=== PATIENT | male | born 1975 | race Caucasian/White ===

== ENCOUNTER 2019-12-24 09:19 | Observation (INO) | payer OTHER, SELFPAY ==
[2019-12-24] VITALS (9 sets, daily range): BP systolic 110–151; BP diastolic 76–110; PULSE 75–105; RESP 16–20; TEMP 36.2–36.8; O2SAT 96–98; BMI 25.9
--- NOTE | ~2019-12-24 | XR_ITS ---
XR chest 2V DATE: 12/24/2019 09:52 INDICATION: Chest pain. Hypertension. TECHNIQUE: PA and lateral views COMPARISON: 06/13/2019 2 view chest FINDINGS: Normal heart size. No hilar or mediastinal enlargement. No pulmonary infiltrate or consolid ation, pleural effusion or pulmonary vascular congestion or pneumothorax. IMPRESSION: Negative Reviewed, dictated and finalized at location B. OMER ACCOUNT TECHNICIAN IMPRESSION: Negative
--- NOTE | 2019-12-24 09:26 | ED.CHESTPAIN ---
HPI - Chest Pain General Chief Complaint: Chest Pain Stated Complaint: Chest Pain Time Seen by Provider: 12/24/19 09:21 Source: patient and RN notes reviewed Mode of arrival: ambulatory Limitations: no limitations History of Present Illness HPI narrative: Pt is a 44 y/o male who presents to the ED with c/o diffuse chest pain which began at 1500 yesterday. He states the pain feels like a tightness or squeezing sensation. Pt states he has been struggling with hypertension and tachycardia for the past 3 months. He reports his PCP, Dr. Garcia, has tried to change his medications for the past 3 months, but his symptoms have not been alleviated. Pt reports his blood pressure was in the 160's/120's in November 2019 when he went to visit Dr. Garcia at his last appointment. He reports he has been experiencing chest pain intermittently for the past 3 months. Pt reports he called his PCP, Dr. Garcia, yesterday who prompted him to come to the ED to be evaluated. He denies taking anything for the pain. He also denies any modifying factors. He reports SOB along with the chest pain, but denies diaphoresis, nausea, or vomiting. Pt reports he has a stress test scheduled for 0800 tomorrow morning at [facility]. Pt denies seeing a substation technician until tomorrow. MD complaint: chest pain Pertinent past history: other (hypertension) Onset (ago): day(s) (1500 yesterday) Timing of current episode: episodic Prior episodes: Yes Onset: during rest Pain location: other (diffuse) Pain radiation: none Quality: tightness and other (squeezing sensation) Relieving factors: nothing (medication change has not helped) Exacerbating factors: nothing Associated symptoms: other (SOB) Related Data Home Medications Medication Instructions Recorded Confirmed Aspirin Low Dose 12/24/19 Allergies Allergy/AdvReac Type Severity Reaction Status Date / Time No Known Drug Allergies Allergy Unknown Unknown Verified 12/05/19 10:07 Honey Bee Allergy Severe Anaphylactic Uncoded 12/05/19 10:07 Shock Review of Systems Review of Systems: All systems reviewed & are unremarkable except as noted in HPI and below Cardiovascular: Cardiovascular: Reports chest pain and Denies diaphoresis Respiratory: Respiratory: Reports dyspnea Gastrointestinal: Gastrointestinal: Denies nausea and Denies vomiting [facility] Social History Social History (Updated 12/24/19 @ 10:20 by Jami A. Avladez) Smoking status: Current every day smoker Tobacco type: e-cigarettes Second hand tobacco smoke exposure: Yes Smoking end date: 07/25/19 Alcohol intake: current Substance use: never Substance use type: does not use Gender identity (if verbalized by the patient): Male Spiritual care concerns: No Agree to blood products: No Comments PCP: Dr. Garcia Exam Const: General: cooperative, no acute distress and alert Nutritional Appearance: well nourished Orientation/consciousness: patient oriented x3 Limitations: no limitations HENMT: Mouth: Yes lip normal and Yes moist mucous membranes Resp: Effort & Inspection: normal respiratory effort Auscultation: clear to auscultation bilaterally Cardio: Rate: tachycardic Rhythm: regular rhythm GI: GI Palp: Yes Soft to palpation and No Tenderness to palpation present (GI) Auscultation: normal bowel sounds Skin: General skin exam: normal color Neuro: General: patient oriented x3 Cognition (Neuro): normal cognition Speech: normal speech Extrem: General: normal to inspection, full ROM and no clubbing, cyanosis or edema Psych: Mental Status: mental status grossly normal Affect: normal affect Attitude: cooperative Course Course Emergency Course: On reevaluation, patient chest pain-free after nitroglycerin. Patient states he has been continuing to have intermittent chest pain in the emergency department. Nitroglycerin paste ordered. Case discussed with primary care physician and plan will be observation in the hospital for serial t
--- NOTE | 2019-12-24 09:33 | ECG_ITS ---
Measurements Intervals [place] Rate: 102 P: 53 IN: 148 QRS: 29 QRSD: 94 T: -19 QT: 302 QTc: 394 Interpretive Statements SINUS TACHYCARDIA POSSIBLE LEFT ATRIAL ENLARGEMENT ST-T WAVE ABNORMALITY IN INF/LAT LEADS- CONSIDER ISCHEMIA ABNORMAL ECG Electronically Signed On 12-24-2019 15:35:06 WOODWORK TEACHER by Javier Abarca D.O.
[2019-12-24] MEDS: ASPIRIN 81 MG CHEWABLE TABLET 324 MG PO (09:39)
[2019-12-24 09:46] LABS: Basophils Absolute Auto 0.1 K/mm3 (0.0-0.1); Basophils Percent Auto 0.7 % (0.2-1.2); Eosinophils Absolute Auto 0.4 K/mm3 (0-0.3); Eosinophils Percent Auto 3.9 % (0-4.4); Hematocrit 45.3 % (42.0-52.0); Hemoglobin 15.2 g/dL (14.0-18.0); Immature Granulocyte Absolute 0.02 K/mm3 (0.00-0.031); Immature Granulocyte Percent A 0.2 % (0-0.5); Lymphocytes Absolute Auto 3.91 K/mm3 (0.9-3.2); Lymphocytes Percent Auto 37.1 % (18.3-44.2); Mean Corpuscular HGB Conc 33.6 g/dl (32-36); Mean Corpuscular Hemoglobin 30.3 pg (26-34); Mean Corpuscular Volume 90.4 fl (80-100); Mean Platelet Volume 10.8 fl (7.4-10.4); Monocytes Absolute Auto 0.6 K/mm3 (0.1-0.6); Monocytes Percent Auto 5.2 % (2.6-8.5); Neutrophils Absolute Auto 5.6 K/mm3 (1.3-6.7); Neutrophils Percent Auto 52.9 % (45.5-73.1); Platelet Count Result 361 k/mm3 (150-375); Red Blood Count 5.01 M/mm3 (4.6-6.20); Red Cell Distribution Width 12.1 % (11.5-14.5); White Blood Count 10.6 K/mm3 (4.5-10.0)
[2019-12-24] MEDS: NITROGLYCERIN SL 0.4 MG TABLET SUBLINGUAL (09:53)
[2019-12-24 09:55] LABS: Prothrombin Time 12.4 Seconds (11.1-14.7)
[2019-12-24 09:56] LABS: Partial Thromboplastin Time 29.3 SECONDS (22.3-36.8)
[2019-12-24 09:58] LABS: Alanine Aminotransferase 27 U/L (4-50); Albumin Level 4.5 g/dL (3.5-5.1); Alkaline Phosphatase 113 U/L (38-126); Aspartate Amino Transferase 26 U/L (17-59); Bilirubin,Total 0.4 mg/dL (0.2-1.3); Blood Urea Nitrogen 5 mg/dL (9-20); Calcium 9.8 mg/dL (8.4-10.2); Carbon Dioxide 24 mmol/L (22-30); Chloride 101 mmol/L (98-107); Estimated CRCL calculation 126 ml/min; Estimated Glomerular Filt Rate > 60; Glucose 141 mg/dL (75-110); Potassium 3.8 mmol/L (3.4-5.0); Sodium 136 mmol/L (137-145)
[2019-12-24 10:03] LABS: D Dimer 0.27 ug/mL (<0.48)
[2019-12-24 10:08] LABS: Add Urine Microscopic? NO; Appearance Urine Clear (Clear); Bilirubin Urine Negative (Negative); Blood Urine Negative (Negative); Color Urine Straw (Yellow); Glucose Urine UA Negative (Negative); Ketones Urine Negative (Negative); Leukocyte Esterase Ur Negative LEU/UL (Negative); Nitrate Urine Negative (Negative); Protein Urine Negative (Negative); Urobilinogen Urine Negative mg/dL (<2.0)
[2019-12-24 10:10] LABS: NT Pro B Type Natriuretic Pept 24 PG/ML (5-100); Troponin I < 0.012 ng/mL (0.000-0.034)
[2019-12-24 10:12] LABS: Specific Grav Ur 1.003 (1.001-1.035)
[2019-12-24 10:26] LABS: Amphetamine Screen Urine Negative (Negative); Barbiturate Screen Urine Negative (Negative); Benzodiazepines Screen Urine Negative (Negative); Cannabinoid Screen Urine Negative (Negative); Cocaine Screen Urine Negative (Negative); Methadone Screen Urine Negative (Negative); Opiate Screen Urine Negative (Negative); Phencyclidine Screen Urine Negative (Negative)
[2019-12-24 13:13] LABS: Troponin I < 0.012 ng/mL (0.000-0.034)
[2019-12-24] MEDS: NITROGLYCERIN OINTMENT 1 INCH DOSE TRANSDERM (13:21)
--- NOTE | 2019-12-24 15:35 | PC.NURSE ---
This patient, Garland Mccrary, was admitted to IMU Room 203-01. Patient/family oriented to hospital policies and general routines including ID bracelet, bed and alarms, visiting hours, pain management, procedures, bathroom and other care routines, personal items, smoking policy, room service/diet, and visiting hours. Valuables list has been completed. Information on how to activate the Rapid Response Team has been discussed. Patient/Family are encouraged to report perceived risks to care and to ask questions if they do not understand what they are told or what they should do.
--- NOTE | 2019-12-24 16:35 | PM.IMHP ---
H&P: HPI History of Present Illness Chief complaint: Chest Pain Narrative: Garland Mccrary is a 44 year old male has had history of having hypertension for several years. At some point was under control but he recently has been uncontrolled and defer medications have been tried. Patient was having some chest pain that started yesterday. He said it feels like somebody is squeezing his heart. He said it feels like when he worked out very hard a new get a muscle cramp. He feels like he strained his heart. He had no nausea no vomiting no fever no chills no diaphoresis. Does not radiate anywhere and is not reproducible. Nothing makes it worse and nothing makes it better. The patient does take it aspirin every day. Patient stated that his heart rate and blood pressure of been elevated for the last 2 days. He said about 2 days ago he woke up and his heart rate. He stated that in the middle night his heart rate was 218 but did not come to the emergency room at that time. He also said his blood pressure was as high as 195/60. He also stated he has newly diagnosed diabetic. Troponins are negative so far. Patient stated he was scheduled for a chemically induced stress test tomorrow. When I asked him why he was scheduled for stress test he did not answer me. He continued to talk about his high heart rate and blood pressure. Patient said he quit smoking in July but he still vapors. He denies any sleep apnea. He states that he takes all the medications that are prescribed to him. Date of service 12/24/2019. The heart care group have been notified. EKG was read as sinus tachycardia heart rate was 102. ST T wave abnormality in the inferior lateral leads consider ischemia abnormal EKG. Patient was given aspirin and nitro in the emergency room. Patient stated he still has a squeezing feeling in his chest although is better when he 1st noticed it. Review of Systems Review of Systems: All systems reviewed & are unremarkable except as noted in HPI and below Constitutional: Constitutional: Reports as per HPI and Reports no additional constitutional complaints Eyes: Eyes: Reports as per HPI and Reports no additional eye complaints ENT: Reports system reviewed and no additional complaints, except as documented and Reports Normal hearing present Cardiovascular: Cardiovascular: Reports no additional cardiovascular complaints Respiratory: Respiratory: Reports no additional respiratory complaints and Reports no additional respiratory complaints Gastrointestinal: Gastrointestinal: Reports as per HPI and Reports no additional gastrointestinal complaints Musculoskeletal: Musculoskeletal: Reports no additional musculoskeletal complaints Comments: Patient stated that his chronic lower back pain due to bulging disc due to an injury. Integumentary/Breasts: Skin/Breast: Reports system reviewed and no additional complaints, except as docu and Reports as per HPI Neurologic: Reports system reviewed and no additional complaints, except as documented, Reports as per HPI and Reports Normal hearing present Psychiatric: Psychiatric: Reports no additional psychiatric complaints and Reports as per HPI Endocrine: Endocrine: Reports no additional endocrine complaints and Reports other (Patient stated he was newly diagnosed diabetes) Hematologic/Lymphatic: Hematologic/Lymphatic: Reports no additional hematologic/lymphatic complaints Allergic/Immunologic: Allergic/Immunologic: Reports no additional allergic/immunologic complaints PMFSH Past Medical History Medical History Chronic GERD Diabetes Not on any medications newly diagnosed Essential hypertension Uncontrolled Fibromyalgia Insomnia Low back pain Chronic back pain bulging disc L1-S1 Mixed hyperlipidemia Other cervical disc disorders, unspecified cervical region Surgical History Surgical History (Reviewed 12/24/19 @ 16:57 by Nora Houser
[2019-12-24 16:38] LABS: Troponin I < 0.012 ng/mL (0.000-0.034)
--- NOTE | 2019-12-24 16:46 | PM.CNCAR ---
Assessment and Plan Assessment and plan (1) Chest pain: Qualifiers: Chest pain type: unspecified Qualified Code(s): R07.9 - Chest pain, unspecified Code(s): R07.9 - Chest pain, unspecified Status: Acute Assessment and Plan: Concerning for accelerating angina. Symptoms have been present for the past couple of years better progressively worsening and now occurring with less activity. Arrhythmogenic etiology causing angina is also a possibility. Regardless, he has several risk factors for coronary disease including former smoker, high blood pressure, diabetes, hyperlipidemia, family history heart disease. Given his worsening symptoms, abnormal EKG, and risk factors, I have talked to him about the need for ischemic evaluation. He verbalizes understanding and is agreement with ischemic evaluation. I talked about the possibility of stress testing versus cardiac catheterization to define his coronary anatomy definitively. After having this discussion, and again given the above symptoms, he is agreeable to proceed with coronary angiogram to define his anatomy. Will keep him NPO after midnight. One dose of Lovenox 1 milligram/kilogram subcu x1 will be given. Continue his lisinopril, metoprolol, pantoprazole, aspirin at current dosages. Will give him atorvastatin 40 mg p.o. x1 also. Will check a fasting lipid panel. If his symptoms are found not to be coronary in etiology, would have him wear an outpatient slicer machine operator (2) Hypertension associated with diabetes: Code(s): E11.59 - Type 2 diabetes mellitus with other circulatory complications; I10 - Essential (primary) hypertension Status: Acute Assessment and Plan: Continue above medications and will titrate as needed. Will check a 2D echocardiogram with Doppler. (3) Hyperlipidemia associated with type 2 diabetes mellitus: Code(s): E11.69 - Type 2 diabetes mellitus with other specified complication; E78.5 - Hyperlipidemia, unspecified Status: Acute Assessment and Plan: Start statin (4) Fibromyalgia: Code(s): M79.7 - Fibromyalgia Status: Chronic History of Present Illness History of Present Illness Consult date/time: 12/24/19 16:46 Requesting physician: Martha Kirby NP Consult reason: chest pain Reason For Visit: Chest Pain Narrative: Date of service 12/24/2019 History: Patient is a 44-year-old male who has chest pain. Patient states he he started having exertional chest pain several years ago which would occur whenever he or to exercise with his on a treadmill. Symptoms would improve with rest. Gradually his symptoms have worsened over the past several years. Since September he has been having episodes of elevated heart rate with activity as well as associated chest tightness. He states that his symptoms and chest pain feel as if his heart is in a vice or squeezing. It occurs at least 2 times weekly and usually when he is doing things is working in his garage. He will also notice as heart rate and pulse will be elevated. It has been as high as in the 200s. Symptoms generally last for 30 minutes up to an hour and then gradually subsided when a recent statin rest. It is associated with some shortness of breath. It also radiates into his jaw and into his arm. He denies any syncope but does have some associated dizziness and lightheadedness with average heart rate is fast. He denies any edema, paroxysmal nocturnal dyspnea, orthopnea. He has several risk factors for coronary disease including former smoker, high blood pressure, high cholesterol, diabetes, family history of heart disease prematurely. Review of Systems Review of Systems: All systems reviewed & are unremarkable except as noted in HPI and below Constitutional: Constitutional: Denies weakness Eyes: Eyes: Denies blurry vision ENT: Reports Normal hearing present Cardiovascular: Cardiovascular: Reports chest pain and Reports palpi
[2019-12-24 17:26] LABS: Alanine Aminotransferase 26 U/L (4-50); Aspartate Amino Transferase 28 U/L (17-59); Cholesterol 187 mg/dL (0-200); HDL Direct 24 mg/dL; Triglycerides 270 mg/dL (<150)
[2019-12-24 17:37] LABS: LDL Cholesterol Direct 127 mg/dL
[2019-12-24] MEDS: ENOXAPARIN 80 MG/0.8 ML SYRINGE SUB-Q (18:16)
[2019-12-24 18:33] LABS: Glucose Point of Care 119 (65-105)
[2019-12-24 20:42] LABS: Glucose Point of Care 173 (65-105)
[2019-12-25] VITALS (18 sets, daily range): BP systolic 116–135; BP diastolic 69–90; PULSE 66–90; RESP 11–20; TEMP 36.1–36.7; O2SAT 95–100
[2019-12-25] MEDS: SODIUM CHLORIDE 0.9% IV 500 ML 100 ML IV CONT ×2 (03:48→08:35)
[2019-12-25 05:27] LABS: Hemoglobin A1C 6.5 % (<5.7)
[2019-12-25 05:31] LABS: Magnesium 2.1 mg/dL (1.6-2.3)
[2019-12-25 05:39] LABS: Basophils Absolute Auto 0.1 K/mm3 (0.0-0.1); Basophils Percent Auto 0.6 % (0.2-1.2); Eosinophils Absolute Auto 0.4 K/mm3 (0-0.3); Eosinophils Percent Auto 4.3 % (0-4.4); Hematocrit 42.2 % (42.0-52.0); Hemoglobin 13.7 g/dL (14.0-18.0); Immature Granulocyte Absolute 0.02 K/mm3 (0.00-0.031); Immature Granulocyte Percent A 0.2 % (0-0.5); Lymphocytes Absolute Auto 4.82 K/mm3 (0.9-3.2); Lymphocytes Percent Auto 49.7 % (18.3-44.2); Mean Corpuscular HGB Conc 32.5 g/dl (32-36); Mean Corpuscular Volume 92.5 fl (80-100); Mean Platelet Volume 11.1 fl (7.4-10.4); Monocytes Absolute Auto 0.5 K/mm3 (0.1-0.6); Monocytes Percent Auto 5.4 % (2.6-8.5); Neutrophils Absolute Auto 3.9 K/mm3 (1.3-6.7); Neutrophils Percent Auto 39.8 % (45.5-73.1); Platelet Count Result 307 k/mm3 (150-375); Red Blood Count 4.56 M/mm3 (4.6-6.20); White Blood Count 9.7 K/mm3 (4.5-10.0)
--- NOTE | 2019-12-25 06:32 | ECHO_ITS ---
Patient Info Name: Garland Mccrary Age: 44 years : 1975 Gender: Male Ht: 71 in Wt: 187 lbs BSA: 2.07 m2 HR: 73 bpm BP: 132 / 79 mmHg Heart Rhythm: Sinus Rhythm Technical Quality: Excellent Exam Date: 12/25/2019 9:11 AM Exam Location: [facility] Patient Status: Outpatient Admit Date: 12/24/2019 Staff Ordering Physician: Ann Garcia MD Director Of Recreation Therapy: Emmanuel Cerrato, CAROLCS, RT Attending Provider: Aj Anguiano MD Referring Physician: Jose GLOVER; Exam Type: CA echo doppler color flow Study Info Indications R00.0 - Tachycardia, unspecified Complete two-dimensional, color flow and Doppler transthoracic echocardiogram is performed. Summary 1. Left ventricular chamber dimension is normal. 2. Left ventricular systolic function is normal, estimated at 55-60%. 3. There is mildly increased left ventricular wall thickness. 4. Left ventricular septal wall motion is normal. 5. The left ventricular diastolic function is normal. 6. There is mild tricuspid valve regurgitation. 7. Atrial septum is thin and hypermobile. Borderline aneurysmal. Left Ventricle Left ventricular chamber dimension is normal. Left ventricular systolic function is normal, estimated at 55-60%. There is mildly increased left ventricular wall thickness. Left ventricular septal wall motion is normal. The left ventricular diastolic function is normal. Right Ventricle Right ventricular chamber dimension is normal. Right ventricular systolic function is normal. Left Atria Left atrial chamber dimension is normal. Right Atria Right atrial chamber dimension is normal. Aortic Valve The aortic valve is trileaflet. There is mild aortic valve sclerosis. There is no aortic valve stenosis. There is trace aortic valve regurgitation. Pulmonic Valve The pulmonic valve is normal. There is no pulmonic valve stenosis. There is trace pulmonic regurgitation. Mitral Valve The mitral valve has normal leaflets. There is no mitral valve stenosis. There is trace mitral valve regurgitation. Tricuspid Valve The tricuspid valve leaflets are normal. There is no significant tricuspid valve stenosis. There is mild tricuspid valve regurgitation. RVSP estimate between 25-30 mmHg. Other Findings Atrial septum is thin and hypermobile. Borderline aneurysmal. Pericardium/Pleural The pericardium appears normal. There is no pericardial effusion. Inferior Vena Cava Normal inferior vena cava with >50% collapse upon inspiration consistent with normal right atrial pressure, 5 mmHg. Aorta The aortic root size at the sinus of Valsalva is normal. Left Ventricular Outflow Tract Name Value Normal LVOT 2D LVOT Diameter 2.2 cm LVOT Doppler LVOT Peak Gradient 6 mmHg LVOT Mean Gradient 3 mmHg LVOT VTI 22 cm LVOT VTI/AV VTI Ratio 0.9 LVOT Stroke Volume 87 ml LVOT CO 6.1 l/min LVOT CI 3.0 l/min/m2 Pu
[2019-12-25 06:38] LABS: Thyroid Stimulating Hormone Reflex 0.925 uIU/mL (0.465-4.68)
[2019-12-25 07:25] LABS: Glucose Point of Care 138 (65-105)
[2019-12-25] MEDS: GABAPENTIN 300 MG CAPSULE 600 MG PO (08:35)
[2019-12-25] MEDS: TRAMADOL HCL 50 MG TABLET PO (08:35)
--- NOTE | 2019-12-25 09:11 | P.PCNCC_ITS ---
Cardiac Cath Procedure Note Date of procedure:: 12/25/19 Performing physician:: Ger Sumner MD Date of service: 12/25/2019 Indication:: chest pain Brief clinical history:: this is 44-year-old patient with past medical history of diabetes, hypertension, hyperlipidemia and previous smoker who presents to the hospital with chest pain. His chest pain for 2 years with light activities but progressively worsening.Due to multiple risk factors for coronary artery disease it was decided that we would bring him to the laborer steel handling to define the coronary anatomy. Procedure Procedure performed:: 1-Moderate sedation that started at 9:39 a.m.and ended at 10:03 a.m.using 5mg of Versed and 125mcg fentanyl. The registered nurse was John Elam. 2-Selective left and right coronary angiogram. 3-Left heart catheterization with measurement of LVEDP and measurement of gradient across aortic valve. 4-Right common femoral arterial angiogram. 5-Deployment of 6 [place] Angio-Seal. Sedation/Medication given:: Moderate sedation. Access site:: Right common femoral artery. Estimated blood loss:: 10cc Procedure note:: After informed consent patient was brought in to laborer steel handling with the was draped and prepped in usual manner. Moderate sedation was given and the right groin was infiltrated using 1% lidocaine. Five [place] sheath was obtained using micropuncture needle and the modified Seldinger technique. Selective left coronary angiogram was done using JL4 catheter with the tip of the catheter placed in the left main coronary artery. Selective right coronary angiogram was done using JR4 catheter with the tip of the catheter placed to the right coronary artery. After that 5 [place] pigtail catheter was advanced across the aortic valve into the left ventricle with measurement of LVEDP and measurement of gradient across aortic valve. Right common femoral arterial angiogram was done. Findings:: 1- left coronary artery is a large artery that divides into large LAD, large circumflex artery. Left main is Free of disease. 2- left anterior descending artery is a large artery that runs To the apex. It has minimal irregularities proximally. Proximally also gives rise to a medium-sized diagonal 1 branch with minimal irregularities. 3- left circumflex artery is a large artery And has minimal irregularities. It gives rise to small OM1 branch and OM 2 branches and then large OM3 branch that looks unremarkable. 4- right coronary artery is Large artery and dominant and has diffuse minimal irregularities. 5- LVEDP was 12 mm Hg and no gradient across aortic valve. 6- opening arterial pressure was 109/72 and closing pressure was 113/67. 7- right femoral artery angiogram shows no significant disease in the right common femoral artery. Conclusion:: 1- minimal coronary irregularities. Assessment and Plan Additional Plan will need to continue aggressive risk factor modification for coronary artery disease.
--- NOTE | 2019-12-25 09:13 | WPDMODSED ---
Moderate Sedation Note-Pt Data Patient Data Allergies Allergy/AdvReac Type Severity Reaction Status Date / Time No Known Drug Allergies Allergy Unknown Unknown Verified 12/05/19 10:07 Honey Bee Allergy Severe Anaphylactic Uncoded 12/05/19 10:07 Shock Home Medications Medication Instructions Recorded Confirmed Type gabapentin 300 mg capsule 600 mg PO TID #540 cap 10/19/19 12/24/19 Rx pantoprazole 40 mg tablet,delayed 40 mg PO QAM #30 tablet 10/19/19 12/24/19 Rx release lisinopril 20 mg tablet 20 mg PO DAILY #90 tablet 10/20/19 12/24/19 Rx tramadol 50 mg tablet 50 mg PO Q6H PRN #120 tablet 10/22/19 12/24/19 Rx tizanidine 4 mg tablet 4 mg PO TID PRN #90 tablet 11/19/19 12/24/19 Rx metoprolol succinate 50 mg 50 mg PO DAILY #30 tablet 12/05/19 12/24/19 Rx tablet,extended release 24 hr amitriptyline 100 mg PO HS 12/24/19 12/24/19 History aspirin 81 mg PO DAILY 12/24/19 12/24/19 History Current Medications: Active Medications Amitriptyline HCl (Elavil) 100 mg PO HS [facility] Last Admin: 12/24/19 22:03 Dose: Not Given Documented by: Aspirin (Aspirin Chewable) 81 mg PO DAILY@0800 [facility] Aspirin (Aspirin Chewable) 81 mg PO DAILY [facility] Atorvastatin Calcium (Lipitor) 40 mg PO DAILY [facility] Dextrose (Dextrose 50% Syringe) 12.5 gm IV PUSH PRN PRN; Protocol PRN Reason: Hypoglycemia Gabapentin (Neurontin) 600 mg PO Q8HR [facility] Last Admin: 12/25/19 08:35 Dose: 600 mg Documented by: Glucagon (Glucagon For Inj) 1 mg IM PRN PRN; Protocol PRN Reason: Hypoglycemia Glucose (Glutose 15) 15 gm PO PRN PRN; Protocol PRN Reason: Hypoglycemia Hydralazine HCl (Apresoline Hcl Inj) 10 mg IV PUSH Q8H PRN PRN Reason: Blood Pressure - High Dextrose (Dextrose 5% 1,000 Ml) 1,000 mls @ 100 mls/hr IVPB PRN PRN; Protocol PRN Reason: Hypoglycemia Sodium Chloride (Normal Saline Iv) 500 mls @ 100 mls/hr IV CONT .Q5H [facility] Last Admin: 12/25/19 08:35 Dose: 100 mls/hr Documented by: Insulin Aspart (Novolog) 2 - 5 units SUB-Q TIDWM [facility]; Protocol Last Admin: 12/25/19 08:30 Dose: Not Given Documented by: Lisinopril (Prinivil) 20 mg PO DAILY [facility] Metoprolol Succinate (Toprol Xl) 50 mg PO DAILY [facility] Nitroglycerin (Nitrostat Subl 0.4 Mg (1/150)) 0.4 mg SUBLINGUAL Q5MIN PRN PRN Reason: Chest Pain Last Admin: 12/24/19 09:53 Dose: 0.4 mg Documented by: Pantoprazole Sodium (Protonix) 40 mg PO QAM ANDREA Tizanidine HCl (Zanaflex) 4 mg PO TID PRN PRN Reason: muscle spasticity Tramadol HCl (Ultram) 50 mg PO Q6H PRN PRN Reason: pain Last Admin: 12/25/19 08:35 Dose: 50 mg Documented by: Sedation/Anesthesia: No previous sedation/anesthesia problems (including family history). [facility] Past Medical History Medical History Chronic GERD Diabetes Not on any medications newly diagnosed Essential hypertension Uncontrolled Fibromyalgia Hyperlipidemia associated with type 2 diabetes mellitus Hypertension associated with diabetes Insomnia Low back pain Chronic back pain bulging disc L1-S1 Mixed hyperlipidemia Other cervical disc disorders, unspecified cervical region Surgical History Surgical History H/O hand surgery Pending to the left wrist History of surgical removal of skin lesion Nose Family History Family History Father Diabetes mellitus Hypertension Family history of alcoholism Family history of arthritis CHF (congestive heart failure), NYHA class I Grandparent Diabetes mellitus Asthma Cerebrovascular accident Hypertension Mother Diabetes mellitus Hypertension Sibling Diabetes mellitus Other Family history of cardiovascular disease Social History Social History Social History: The patient stated he does not have any biological children but he has 3 step children. He is and his wif
--- NOTE | 2019-12-25 09:13 | WPDHPUPDATE1 ---
History and Physical Update Update Date/Time: 12/25/19 09:13 History and Physical has been reviewed, including an updated exam of the patient. There are NO changes in the patient's condition. Risks, benefits, and alternatives have been discussed and questions answered. Patient agrees to proceed with procedure.
[2019-12-25 13:43] LABS: Glucose Point of Care 152 (65-105)
--- NOTE | 2019-12-25 15:25 | PM.DS ---
DS: Diagnosis Admitting Diagnosis Admitting Diagnosis: Chest pain, unspecified Discharge Diagnosis (1) Chest pain: Qualifiers: Chest pain type: unspecified Qualified Code(s): R07.9 - Chest pain, unspecified Code(s): R07.9 - Chest pain, unspecified Status: Acute Assessment and Plan: Patient has pain at rest and with exertion it is constant and squeezing pain. The patient is on nitro and aspirin. His toxicology screen is negative. Troponins x3 were negative. HOwever because of symptoms and EKG results on admission. pt was seen by cardiology and had a heart cath. Heart cath was negative see full details below. EKG ON ADMISSION_ SINUS TACHYCARDIA POSSIBLE LEFT ATRIAL ENLARGEMENT ST-T WAVE ABNORMALITY IN INF/LAT LEADS- CONSIDER ISCHEMIA Heart catherization results are as follows- 1- left coronary artery is a large artery that divides into large LAD, large circumflex artery. Left main is Free of disease. 2- left anterior descending artery is a large artery that runs To the apex. It has minimal irregularities proximally. Proximally also gives rise to a medium-sized diagonal 1 branch with minimal irregularities. 3- left circumflex artery is a large artery And has minimal irregularities. It gives rise to small OM1 branch and OM 2 branches and then large OM3 branch that looks unremarkable. 4- right coronary artery is Large artery and dominant and has diffuse minimal irregularities. 5- LVEDP was 12 mm Hg and no gradient across aortic valve. 6- opening arterial pressure was 109/72 and closing pressure was 113/67. 7- right femoral artery angiogram shows no significant disease in the right common femoral artery Pt still complains of tachycardia on ambulation. I have adviced 1.5 metoprolol succinate 50 mg every morning if his heart rate goes above 100. Pt can have holter monitored fitted prior to discharge and can follow with cardiology if his heart rate is a ongoing problem. Heart rate in hospital is in the 60s pt states that is because he has not moved since the heart catherisation and feels is heart rate go up on ambulation. Chest pain is resolved on discharge. Pt is stable for discharge (2) Essential hypertension: Code(s): I10 - Essential (primary) hypertension Status: Chronic Assessment and Plan: Continue with metoprolol succinate and p.r.n. hydralazine. Continue lisinopril. (3) Diabetes: Code(s): E11.9 - Type 2 diabetes mellitus without complications Status: Acute Assessment and Plan: Aic is 6.5 prediabetic , diet controlled diabetes, pt is not on any DM medications. (4) Fibromyalgia: Code(s): M79.7 - Fibromyalgia Status: Chronic Assessment and Plan: Continue with patient's amitriptyline, gabapentin, and Ultram. (5) Chronic GERD: Code(s): K21.9 - Gastro-esophageal reflux disease without esophagitis Status: Chronic Assessment and Plan: Continue with pantoprazole (6) Insomnia: Code(s): G47.00 - Insomnia, unspecified Status: Chronic Assessment and Plan: Continue with amitriptyline. (7) Low back pain: Code(s): M54.5 - Low back pain Status: Chronic Assessment and Plan: Continue with muscle relaxer, Ultram and amitriptyline as well gabapentin as he uses at home. DS: Summary Time Spent with Patient Time attestation: Total time spent providing and/or coordinating discharge services:38 minutes on day of dischrage Exam Const: General: cooperative, healthy appearing, comfortable, no acute distress, well developed, alert, awake and Physically active Nutritional Appearance: average body habitus and well nourished Orientation/consciousness: oriented to person, oriented to place, oriented to time and patient oriented x3 Limitations: no limitations Neck: Neck: normal visual inspection, full ROM, no lymphadenopathy, trachea midline and supple Thyroid: thyroid normal Carotids:
[2019-12-25 18:03] LABS: Glucose Point of Care 131 (65-105)
[2019-12-25 18:03] LABS: Glucose Point of Care 164 (65-105)
== END 2019-12-25 17:05 | disposition home or self-care (01) ==
LOC: ANHED 14:52 → ANHIMU 16:33
PROVIDERS: Internal Medicine Cardiovascular Disease; Nurse Practitioner; Admitting Provider Internal Medicine; Emergency Provider Emergency Medicine; PCP Family Medicine; Visit Provider Family Medicine
PROC: 4A023N7 Measurement of Cardiac Sampling and Pressure, Left Heart, Percutaneous Approach (ICD-10-PCS; CPT 93452; principal; 2019-12-25 09:30)
DX: R07.9 Chest pain, unspecified (principal); R06.02 Shortness of breath; E11.59 Type 2 diabetes mellitus with other circulatory complications; I10 Essential (primary) hypertension; E11.69 Type 2 diabetes mellitus with other specified complication; E78.5 Hyperlipidemia, unspecified; M79.7 Fibromyalgia; M54.5 Low back pain; K21.9 Gastro-esophageal reflux disease without esophagitis; G47.00 Insomnia, unspecified; F17.290 Nicotine dependence, other tobacco product, uncomplicated
CPT/HCPCS: 36415; 71046; 80053; 80061; 80307; 81003; 83036; 83735; 83880; 84443; 84450; 84460; 84484; 85025; 85380; 85610; 85730; 93005; 93306; 93458; 96360; 96361; 96372; 99285; A9270; C1760; C1887; C1894; G0269; G0378; G0379; J1644; J1650; J2250; J3010; J7040

== ENCOUNTER 2020-10-01 10:31 | Outpatient (CLI) | payer OTHER, SELFPAY ==
--- NOTE | ~2020-10-01 | US_ITS ---
EXAMINATION: US thyroid DATE: 10/01/2020 11:49 INDICATION: Nontoxic single thyroid nodule. TECHNIQUE: Multiple ultrasound images of the thyroid were obtained. COMPARISON: None. FINDINGS: The right thyroid lobe measures 6.3 x 1.8 x 1.6 cm. The left thyroid lobe measures 5.8 x 1.4 x 1.7 c m. There is normal echotexture and echogenicity throughout the thyroid gland. No discrete nodules id entified. Normal vascular flow is present. IMPRESSION: 1. Normal thyroid. Reviewed, dictated and finalized at location A. TH CARE RECRUITER IMPRESSION: 1. Normal thyroid.
--- NOTE | ~2020-10-01 | XR_ITS ---
EXAMINATION: XR chest 2V EXAM DATE: 10/01/2020 10:56 INDICATION: R05 - Cough, HX EMPHYSEMA, HTN . TECHNIQUE: Frontal and lateral projections of the chest obtained and reviewed. Comparison is made to prior examination from 12/24/2019. FINDINGS: Linear left basilar scarring. The lungs are otherwise clear. There are no pleural effusion s. The cardiomediastinal silhouette is within normal limits. There is no pneumothorax suspected. T he bones and soft tissues are unremarkable. IMPRESSION: No acute cardiopulmonary findings. Reviewed, dictated and finalized at location B. CLING TECHNICIAN
== END 2020-10-01 10:32 | disposition home or self-care (01) ==
PROVIDERS: PCP Family Medicine; Visit Provider Family Medicine
DX: E04.1 Nontoxic single thyroid nodule (principal); R05 Cough
CPT/HCPCS: 71046; 76536

== ENCOUNTER 2021-02-08 14:54 | Emergency (ER) | payer OTHER, SELFPAY ==
--- NOTE | ~2021-02-08 | XR_ITS ---
EXAMINATION: XR chest 2V EXAM DATE: 02/08/2021 15:27 INDICATION: Midsternal chest pain. TECHNIQUE: Frontal and lateral projections of the chest obtained and reviewed. Comparison is made to prior examination from 10/01/2020. FINDINGS: The lungs are clear. There are no pleural effusions. The cardiomediastinal silhouette is within normal limits. There is no pneumothorax suspected. The bones and soft tissues are unremarkab le. IMPRESSION: No acute cardiopulmonary findings. Reviewed, dictated and finalized at location A.
--- NOTE | 2021-02-08 14:55 | ECG_ITS ---
Measurements Intervals [place] Rate: 99 P: 63 [place]: 161 QRS: 55 QRSD: 99 T: -30 QT: 305 QTc: 393 Interpretive Statements SINUS RHYTHM LEFT VENTRICULAR HYPERTROPHY AND ST-T CHANGE MINIMAL Q WAVES- DIFFUSE LEADS ST-T WAVE ABNORMALITY IN ANTEROLAT/INF LEADS- CONSIDER ISCHEMIA BASELINE ARTIFACT- I, II ABNORMAL ECG Electronically Signed On 02-08-2021 15:41:30 CDT by Javier Abarca D.O.
[2021-02-08 15:01] VITALS: BP 139/97; PULSE 99; RESP 17; TEMP 36.3; O2SAT 97
[2021-02-08 15:14] LABS: Basophils Absolute Auto 0.1 K/mm3 (0.0-0.1); Basophils Percent Auto 0.4 % (0.2-1.2); Eosinophils Absolute Auto 0.2 K/mm3 (0-0.3); Eosinophils Percent Auto 1.1 % (0-4.4); Hemoglobin 14.9 g/dL (14.0-18.0); Immature Granulocyte Absolute 0.12 K/mm3 (0.00-0.031); Immature Granulocyte Percent A 0.6 % (0-0.5); Lymphocytes Percent Auto 19.1 % (18.3-44.2); Mean Corpuscular HGB Conc 33.9 g/dl (32-36); Mean Corpuscular Hemoglobin 31.4 pg (26-34); Mean Corpuscular Volume 92.6 fl (80-100); Mean Platelet Volume 10.4 fl (7.4-10.4); Monocytes Percent Auto 5.2 % (2.6-8.5); Neutrophils Absolute Auto 14.6 K/mm3 (1.3-6.7); Neutrophils Percent Auto 73.6 % (45.5-73.1); Platelet Count Result 318 k/mm3 (150-375); Red Blood Count 4.75 M/mm3 (4.6-6.20); White Blood Count 19.9 K/mm3 (4.5-10.0)
[2021-02-08 15:33] LABS: INR 0.9; Prothrombin Time 13.1 Seconds (11.1-14.7)
[2021-02-08 15:35] LABS: Blood Urea Nitrogen 10 mg/dL (9-20); Calcium 9.6 mg/dL (8.4-10.2); Carbon Dioxide 28 mmol/L (22-30); Estimated CRCL calculation 99 ml/min; Estimated Glomerular Filt Rate > 60; Glucose 131 mg/dL (75-110); Potassium 3.9 mmol/L (3.4-5.0); Sodium 136 mmol/L (137-145)
[2021-02-08 15:39] LABS: Troponin I < 0.012 ng/mL (0.000-0.034)
[2021-02-08 15:42] LABS: Anion Gap 7 mmol/L (8-16); Chloride 101 mmol/L (98-107)
[2021-02-08 17:52] VITALS: BP 146/103; PULSE 93; PULSE 96; RESP 18; O2SAT 98
--- NOTE | 2021-02-08 17:54 | ED.CHESTPAIN ---
HPI - Chest Pain General Chief Complaint: Chest Pain Stated Complaint: chest pain Time Seen by Provider: 02/08/21 17:54 History of Present Illness HPI narrative: Sharp pain at the left costochondral junction. worse with deep breathing, coughing, movement of the left arm or trunk. No SOB, wheezing, fever, nausea, vomiting. Related Data Home Medications Medication Instructions Recorded Confirmed aspirin 81 mg PO DAILY 12/24/19 09/17/20 Allergies Allergy/AdvReac Type Severity Reaction Status Date / Time No Known Drug Allergies Allergy Unknown Unknown Verified 02/08/21 17:57 Honey Bee Allergy Severe Anaphylactic Uncoded 02/08/21 17:57 Shock Review of Systems Review of Systems: All systems reviewed & are unremarkable except as noted in HPI and below Constitutional: Constitutional: Denies chills, Denies fatigue, Denies fever(s) and Denies weakness Eyes: Eyes: Reports no additional eye complaints ENT: Denies nasal congestion and Denies sore throat Cardiovascular: Cardiovascular: Reports chest pain and Denies radiating jaw, neck or arm pain Respiratory: Respiratory: Denies chest congestion, Denies cough, Denies dyspnea and Denies wheezing Gastrointestinal: Gastrointestinal: Denies abdominal pain, Denies nausea and Denies vomiting Genitourinary: Genitourinary: Reports no additional male genitourinary complaints Musculoskeletal: Musculoskeletal: Denies back pain Neurologic: Reports system reviewed and no additional complaints, except as documented PMF Past Medical History Medical History Bipolar 1 disorder Chronic GERD Diabetes Not on any medications newly diagnosed Essential hypertension Uncontrolled Fibromyalgia Hyperlipidemia associated with type 2 diabetes mellitus Hypertension associated with diabetes Insomnia Low back pain Chronic back pain bulging disc L1-S1 Mixed hyperlipidemia Other cervical disc disorders, unspecified cervical region Surgical History Surgical History H/O hand surgery Pending to the left wrist History of surgical removal of skin lesion Nose Family History Family History Father Diabetes mellitus Hypertension Family history of alcoholism Family history of arthritis CHF (congestive heart failure), NYHA class I Grandparent Diabetes mellitus Asthma Cerebrovascular accident Hypertension Mother Diabetes mellitus Hypertension Sibling Diabetes mellitus Other Family history of cardiovascular disease Social History Social History Social History: The patient stated he does not have any biological children but he has 3 step children. He is and his Mary Olivera is his power of criminal defense attorney for healthcare. He desires to be a full code. 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 He does vapor but uses very little nicotine. No alcohol or street drugs. Smoking packs per day: 1 Smoking cigarettes per day: 20.0 Years smoked: 30 Smoking pack-years: 30.00 Smoking status: Current every day smoker Tobacco type: cigarettes and e-cigarettes/vaping Second hand tobacco smoke exposure: Yes Smoking end date: 07/25/19 Alcohol intake: current Substance use: never Substance use type: does not use Gender identity (if verbalized by the patient): Male Spiritual care concerns: No Agree to blood products: No Exam Const: General: healthy appearing, no acute distress and alert Orientation/consciousness: patient oriented x3 HENMT: Head: normal to inspection Neck: Neck: normal visual inspection and no lymphadenopathy Chest: Chest palpation & inspection: tenderness costochondral junction (Left) Resp: Effort & Inspection: normal respiratory effort Auscultation: clear to
[2021-02-08 18:42] LABS: Troponin I < 0.012 ng/mL (0.000-0.034)
[2021-02-08] MEDS: KETOROLAC 30 MG/ML VIAL (*BKC) IV PUSH (19:04)
[2021-02-08 19:53] VITALS: BP 141/89; PULSE 86; RESP 18; TEMP 36.2; O2SAT 98
== END 2021-02-08 19:54 | disposition home or self-care (01) ==
PROVIDERS: Emergency Medicine; Emergency Provider Emergency Medicine; PCP Family Medicine
DX: M94.0 Chondrocostal junction syndrome [Tietze] (principal); R07.89 Other chest pain; F31.9 Bipolar disorder, unspecified; K21.9 Gastro-esophageal reflux disease without esophagitis; E11.9 Type 2 diabetes mellitus without complications; I10 Essential (primary) hypertension; M79.7 Fibromyalgia; E78.2 Mixed hyperlipidemia; Z87.891 Personal history of nicotine dependence; Z79.82 Long term (current) use of aspirin; R94.31 Abnormal electrocardiogram [ECG] [EKG]; I51.7 Cardiomegaly
CPT/HCPCS: 36415; 71046; 80048; 84484; 85025; 85610; 85730; 93005; 96374; 99284; J1885

== ENCOUNTER 2021-12-23 12:35 | Emergency (ER) | payer OTHER, SELFPAY ==
[2021-12-23 12:35] VITALS: BP 151/90; PULSE 86; RESP 16; TEMP 37.3; O2SAT 98
--- NOTE | 2021-12-23 12:36 | ED.WOUNDLAC ---
HPI - Wound/Laceration General Chief Complaint: Wound/Laceration Stated Complaint: Right hand injury Time Seen by Provider: 12/23/21 12:36 Source: patient and RN notes reviewed History of Present Illness HPI narrative: Patient is a 46-year-old male who presents the urgent care with complaints of a laceration to the right thumb/hand. 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 Patient covered it with a rag but otherwise did not treat with anything [id number] prior to his arrival. Patient states it happened just approximately 10 to 15 minutes prior. No other acute complaints. Patient is up-to-date on his tetanus shot. No acute distress noted. Patient aware of the plan of care. Some parts of this dictation were generated by voice recognition software and may contain typographical and/or grammatical inaccuracies. Related Data Home Medications Medication Instructions Recorded Confirmed aspirin 81 mg PO DAILY 12/24/19 09/13/21 tramadol 100 mg PO TID 12/23/21 12/23/21 Allergies Allergy/AdvReac Type Severity Reaction Status Date / Time No Known Drug Allergies Allergy Unknown Unknown Verified 12/23/21 12:37 Honey Bee Allergy Severe Anaphylactic Uncoded 02/08/21 17:57 Shock Review of Systems Review of Systems: CONSTITUTIONAL: Denies fever, chills, or sweats. EYES: Denies visual changes, redness, or discharge. ENT: Denies rhinorrhea, congestion, sore throat, or otalgia. CARDIOVASCULAR: Denies chest pain, palpitations, or edema. RESPIRATORY: Denies cough or dyspnea. GASTROINTESTINAL: Denies abdominal pain, nausea, vomiting, or diarrhea. GENITOURINARY: Denies dysuria or hematuria. SKIN: Reports of a laceration to the right hand/thumb MUSCULOSKELETAL: Denies back pain, joint pain, or myalgia. NEUROLOGIC: Denies headache, numbness, or weakness. All other systems reviewed are negative, except as documented in HPI. [facility] Past Medical History Medical History (Updated 12/23/21 @ 13:25 by SHAWN Valdez) Bipolar 1 disorder Chronic GERD Diabetes Not on any medications newly diagnosed Essential hypertension Uncontrolled Fibromyalgia Hyperlipidemia associated with type 2 diabetes mellitus Hypertension associated with diabetes Insomnia Low back pain Chronic back pain bulging disc L1-S1 Mixed hyperlipidemia Other cervical disc disorders, unspecified cervical region Surgical History Surgical History H/O hand surgery Pending to the left wrist History of surgical removal of skin lesion Nose Family History Family History Father Diabetes mellitus Hypertension Family history of alcoholism Family history of arthritis CHF (congestive heart failure), NYHA class I Grandparent Diabetes mellitus Asthma Cerebrovascular accident Hypertension Mother Diabetes mellitus Hypertension Sibling Diabetes mellitus Other Family history of cardiovascular disease Social History Social History Social History: The patient stated he does not have any biological children but he has 3 step children. He is and his Mary Olivera is his power of heel seat trimmer for healthcare. He desires to be a full code. 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 He does vapor but uses very little nicotine. No alcohol or street drugs. Smoking packs per day: 1 Smoking cigarettes per day: 20.0 Years smoked: 30 Smoking pack-years: 30.00 Tobacco type: cigarettes and e-cigarettes/vaping Second hand tobacco smoke exposure: Yes Smoking end date: 07/25/19 Alcohol intake: current Substance use: never Substance use type: does not use Gender identity (if verbalized by the patient): Male Spiritual care concerns: No Agree to blood products: No Comments At the t
== END 2021-12-23 13:28 | disposition home or self-care (01) ==
PROVIDERS: Emergency Provider Nurse Practitioner Family
DX: S61.411A Laceration without foreign body of right hand, initial encounter (principal); W29.8XXA Contact with other powered hand tools and household machinery, initial encounter; F17.290 Nicotine dependence, other tobacco product, uncomplicated; K21.9 Gastro-esophageal reflux disease without esophagitis; I10 Essential (primary) hypertension; M79.7 Fibromyalgia; E78.5 Hyperlipidemia, unspecified; E78.2 Mixed hyperlipidemia; E11.9 Type 2 diabetes mellitus without complications; Z79.82 Long term (current) use of aspirin; F31.9 Bipolar disorder, unspecified
CPT/HCPCS: 12001; 99212; G0463

== ENCOUNTER 2023-05-01 12:43 | Outpatient (CLI) | payer OTHER, SELFPAY ==
--- NOTE | ~2023-05-01 | XR_ITS ---
EXAM: XR wrist RT min 3V, XR hand RT min 3V DATE: 05/01/2023 13:14 HISTORY: -puncture wound by a screw posterior wrist 3wks ago . COMPARISON: None available. FINDINGS: Normal mineralization. No fracture or dislocation. No lytic or blastic lesion. Joint space s are maintained. No erosion or periosteal change. Soft tissue swelling over the dorsal wrist. IMPRESSION: No acute osseous finding in the right hand or wrist. Reviewed, dictated and finalized at location K. IMPRESSION: No acute osseous finding in the right hand or wrist.
== END 2023-05-01 12:44 | disposition home or self-care (01) ==
PROVIDERS: PCP Family Medicine; Visit Provider Family Medicine
DX: S61.439A Puncture wound without foreign body of unspecified hand, initial encounter (principal); M79.641 Pain in right hand; X58.XXXA Exposure to other specified factors, initial encounter; M25.531 Pain in right wrist; T14.8XXA Other injury of unspecified body region, initial encounter
CPT/HCPCS: 73110; 73130

== ENCOUNTER 2025-01-02 09:32 | Outpatient (CLI) | payer OTHER, SELFPAY ==
--- OUTSIDE RECORDS SUMMARY | 2025-01-02 09:37 | XMS_ITS | Referral Summary ---
Author Organization [facility] Medical Office Building [address] Address [address] [place] [address] Care Team Providers Care Supervisor Cigar Making Machine Name Role Phone Ann Garcia MD Primary Care Provider [phone] Encounters Date Type Department Care Team Description 11/04/2024 2:58 PM AUTHOR AGENT - 11/04/2024 11:59 PM AUTHOR AGENT Hospital Encounter [facility] [address] [place] [address] Cervical strain, initial encounter; Spondylosis; Abnormal vascular flow Discharge Disposition: Discharge to home or self care from Last 3 Months Allergies Active Allergy Reactions Criticality Noted Date Comments Hornet Venom Anaphylaxis High 02/05/2020 Medications amitriptyline (ELAVIL) 25 mg tablet Take 100 mg by mouth. Active cyclobenzaprine (FLEXERIL) 10 mg tablet Take 10 mg by mouth. Active gabapentin (NEURONTIN) 300 mg capsule Take 600 mg by mouth 3 (three) times a day. 06/21/2017 Active traMADol (ULTRAM) 50 mg tablet Take 50 mg by mouth 3 (three) times a day. Active varenicline (CHANTIX) 1 mg tabletIndication s:Smoking Cessation Take 1 mg by mouth. Active atorvastatin (LIPITOR) 40 mg tablet Take 40 mg by mouth daily 12/25/2019 Active hydroCHLOROthiaz morgan (HYDRODIURIL) 25 mg tablet Take 25 mg by mouth daily 01/19/2020 Active lisinopriL (PRINIVIL,ZESTRI L) 20 mg tablet Take 20 mg by mouth 2 (two) times a day 01/19/[address] (PROTONIX) 40 mg EC tablet Take 40 mg by mouth as needed 01/19/2020 Active tiZANidine (ZANAFLEX) 4 mg tablet Take 4 mg by mouth as needed 01/19/2020 Active dilTIAZem CD 120 mg 24 hr capsuleIndicatio ns:Tachycardia TAKE 1 CAPSULE(120 MG) BY MOUTH DAILY 30 capsule 1 07/27/2020 Active Active Problems Problem Noted Date Diagnosed Date Numbness and tingling in both hands 09/19/2017 Social History Tobacco Use Types Packs/Day Years Used Date Smoking Tobacco: Every Day Smokeless Tobacco: Never Tobacco Cessation:Ready to Q uit: No; Counseling Given: Yes Alcohol Use Standard Drinks/Week Comments No 0 (1 standard drink = 0.6 oz pur e alcohol) Sex and Gender Information Value Date Recorded Sex Assigned at Not on file Legal Sex Male 10:08 AM AUTHOR AGENT Gender Identity Not on file Sexual Orientation Not on file Last Filed Vital Signs Vital Sign Reading Time Taken Comments Blood Pressure 100/72 02/05/2020 11:41 AM CDT Pulse 73 02/05/2020 11:41 AM CDT Temperature - - Respiratory Rate - - Oxygen Saturation 97% 02/05/2020 11:41 AM CDT Inhaled Oxygen Concentration - - Weight 84.9 kg (187 lb 3.2 oz) 02/05/2020 11:41 AM CDT Height 180.3 cm (5' 11 ) 02/05/2020 11:41 AM CDT Body Mass Index 26.11 02/05/2020 11:41 AM CDT Plan of Treatment Not on file Procedures Procedure Name Priority Date/Time Associated Diagnosis Comments MRA CAROTIDS W CONTRAST Schedule Routine, Read Routine (OP Routine) 11/04/2024 3:27 PM AUTHOR AGENT Cervical strain, initial encounter Spondylosis Abnormal vascular flow from Last 3 Months Results * MRA Carotids W Contrast (11/04/2024 3:27 PM AUTHOR AGENT) Anatomical Region Laterality Modality Head and Neck N/A Magnetic Resonan ce 11/05/2024 9:25 AM AUTHOR AGENT Narrative 11/05/2024 9:33 AM AUTHOR AGENT EXAM DESCRIPTION: MRA CAROTIDS WITH AND WITHOUT CONTRAST REASON FOR STUDY: CERVICAL STRAIN SPONDYLOSIS Started when a diesel engine fell on his left shoulder about 13 months ago, since the injury, when he turns head to the left and when he gets up, he sees black and then he falls COMPARISON: Cervical spine MRI dated 08/16/2010 TECHNIQUE: MRA of the carotid and vertebral arteries was performed using [id number] techniques without and with the use of gadolinium. All stenosis measurements are based on NASCET criteria. 3D MIP images rendered on scanning unit and reviewed at time of interpretation. CONTRAST TYPE/DOSE: 17mL of GADOTERATE MEGLUMINE 0.5 MMOL/ML INTRAVENOUS SOLUTION (SO) injected via intravenous FINDINGS: RIGHT CAROTID : Mild atherosclerotic calcification of the origin of the internal carotid artery without hemodynamically significant stenosis identified. No internal, external or common carotid stenosis. LEFT CAROTID : Mild atherosclerotic calcification of the origin of the internal carotid artery without hemodynamically significant stenosis identified. No internal, external or common carotid stenosis. GREAT VESSEL ORIGINS: Normal. No stenoses. VERTEBRAL ARTERIES: No stenoses. 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 OTHER: No other significant finding. IMPRESSION: No hemodynamically significant stenosis identified. THIS IS AN ELECTRONICALLY VERIFIED FINAL REPORT 11/05/2024 9:33 AM - Electronically signed by Horacio Leyva M.D. MM: MM Report ID: [id number] Reading Location: [id number] Procedure Note Horacio Leyva MD - 11/05/2024 EXAM DESCRIPTION: MRA CAROTIDS WITH AND WITHOUT CONTRAST REASON FOR STUDY: CERVICAL STRAIN SPONDYLOSIS Started when a diesel engine fell on his left shoulder about 13 monthsago, since the injury, when he turns head to the left and when he gets up, hesees black and then he falls COMPARISON: Cervical spine MRI dated 08/16/2010 TECHNIQUE: MRA of the carotid and vertebral arteries was performed using [id number] techniques without and with the use of gadolinium. Allstenosis measurements are based on NASCET criteria. 3D MIP images rendered on scanning unit and reviewed at time of interpretation. CONTRAST TYPE/DOSE: 17mL of GADOTERATE MEGLUMINE 0.5 MMOL/ML INTRAVENOUS SOLUTION (SO) injected via intravenous FINDINGS: RIGHT CAROTID : Mild atherosclerotic calcification of the origin of the internal carotid artery without hemodynamically significant stenosis identified. No internal, external or common carotid stenosis. LEFT CAROTID : Mild atherosclerotic calcification of the origin of the internal carotid artery without hemodynamically significant stenosis identified. No internal, external or common carotid stenosis. GREAT VESSEL ORIGINS: Normal. No stenoses. VERTEBRAL ARTERIES: No stenoses. The right vertebral artery appears martha congenitally non dominant. OTHER: No other significant finding. IMPRESSION: No hemodynamically significant stenosis identified. THIS IS AN ELECTRONICALLY VERIFIED FINAL REPORT 11/05/2024 9:33 AM - Electronically signed by Horacio Leyva M.D. MM: MM Report ID: [id number] Reading Location: [place] [address] Rustam Anton DO IMG MRI PROCEDURES Final Result from Last 3 Months Insurance [employer] [facility] [employer] Care Teams Supervisor Cigar Making Machine Relationship Specialty Start Date End Date Ann Garcia MD PCP - General Family Medicine 08/06/17
--- OUTSIDE RECORDS SUMMARY | 2025-01-02 09:37 | XMS_ITS | Clinical Summary ---
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
--- OUTSIDE RECORDS SUMMARY | 2025-01-02 09:37 | XMS_ITS | Clinical Summary ---
Author Organization [facility] Address [address] [place] [address] Phone Care Team Providers Care Mechanical Pencils Assembler Name Role Phone Ann Garcia MD Primary Care Provider [phone] Allergies No known active allergies Medications GABAPENTIN PO Take 600 mg by mouth 3 times daily. Active cyclobenzaprine (FLEXERIL) 10 MG Tablet Take 10 mg by mouth 3 times daily as needed for Muscle spasms. Active traMADol (ULTRAM) 50 MG Tablet Take 50 mg by mouth every 8 hours as needed for Pain. Active amitriptyline (ELAVIL) 25 MG Tablet Take 100 mg by mouth nightly. Active varenicline (CHANTIX) 1 MG Tablet Take 1 mg by mouth 2 times daily. Active Family History Medical History Relation Name Comments Arthritis Father Diabetes Father Heart Disease Father Hypertension Father Asthma Maternal Grandmother Diabetes Maternal Grandmother High Cholesterol Maternal Grandmother Stroke Maternal Grandmother Diabetes Mother Hypertension Mother Relation Name Status Comments Father Maternal Grandmother Mother Psych issues Social History Tobacco Use Types Packs/Day Years Used Date Smoking Tobacco: Every Day Cigarettes Smokeless Tobacco: Never Tobacco Cessation:Ready to Q uit: No; Counseling Given: Yes Alcohol Use Standard Drinks/Week Comments No 0 (1 standard drink = 0.6 oz pur e alcohol) Sex and Gender Information Value Date Recorded Sex Assigned at Not on file Legal Sex Male 11:44 PM CDT Gender Identity Not on file Sexual Orientation Not on file Last Filed Vital Signs Vital Sign Reading Time Taken Comments Blood Pressure 122/86 08/22/2017 8:09 AM CDT Pulse 89 08/22/2017 8:09 AM CDT Temperature 35.6 C (96 F) 01/29/2016 11:07 AM SET ILLUSTRATOR Respiratory Rate 18 08/22/2017 8:09 AM CDT Oxygen Saturation 98% 08/22/2017 8:09 AM CDT Inhaled Oxygen Concentration - - Weight 84.4 kg (186 lb) 08/22/2017 8:09 AM CDT Height 180.3 cm (5' 11 ) 08/22/2017 8:09 AM CDT Body Mass Index 25.94 08/22/2017 8:09 AM CDT Plan of Treatment Health Maintenance Due Date Last Done Comments Hepatitis C Virus (HCV) Screening 1977 TdaP Immunization 1977 Hepatitis B Immunization (1 of 3 - 19+ 3-dose series) 1996 Colonoscopy 2022 Colorectal Cancer Screening 2022 Influenza Immunization (#1) 2024 SARS-COV-2 Immunization ( - season) 2024 Respiratory Syncytial Virus (RSV) Immunization (Adult) (1 - 1-dose 75+ series) 2052 Meningococcal Immunization (ACWY) Aged Out No longer eligible based on patient's age to complete this topic Pneumococcal Immunization Combined Aged Out No longer eligible based on patient's age to complete this topic Rotavirus Immunization Aged Out No lo nger eligible based on patient's age to complete this topic [place] [address] [place] [address] Care Teams Mechanical Pencils Assembler Relationship Specialty Start Date End Date Ann Garcia MD [id number] [phone] PCP - General Family Medicine 01/29/16
--- OUTSIDE RECORDS SUMMARY | 2025-01-02 09:37 | XMS_ITS | Clinical Summary ---
Author Organization [facility] Address [address] [place] [address] Care Team Providers Care Compressor Operator Portable Name Role Phone Ann Garcia MD Primary Care Provider [phone] Allergies Active Allergy Reactions Criticality Noted Date [...] Numbness and tingling in both hands 09/19/2017 Encounters Date Type Department Care Team Description 11/04/2024 2:58 PM CAMPUS RECRUITER - 11/04/2024 11:59 PM CAMPUS RECRUITER Hospital Encounter [facility] [address] [place] [id number] Cervical strain, initial encounter; Spondylosis; Abnormal vascular flow Discharge Disposition: Discharge to home or self care from Last 3 Months Surgical History Surgery Date Site/Laterality Comments WRIST SURGERY Left Medical History Medical History Date Comments Hypertension Migraine Hyperlipidemia Cancer (CMS/HCC) (HCC) skin COPD (chronic obstructive pulmonary disease) (HC C) GERD (gastroesophageal reflux disease) Lumbar disc herniation Cervical spine disease Family History Medical History Relation Name Comments Diabetes Father Heart failure Father Hypertension Father Heart failure Father's Brother Stroke Maternal Grandmother Cancer Mother Heart failure Paternal Grandmother Relation Name Status Comments Father Father's Brother Maternal Grandmother Mother Paternal Grandmother Social History Tobacco Use Types Packs/Day Years Used Date Smoking Tobacco: Every Day Smokeless Tobacco: Never Tobacco Cessation:Ready to Q uit: No; Counseling Given: Yes Alcohol Use Standard Drinks/Week Comments No 0 (1 standard drink = 0.6 oz pur e alcohol) Sex and Gender Information Value Date Recorded Sex Assigned at Not on file Legal Sex Male 10:08 AM CAMPUS RECRUITER Gender Identity Not on file Sexual Orientation Not on file Obstetrics History Last Filed Vital Signs Vital Sign Reading [...] 02/05/2020 11:41 AM CDT Plan of Treatment Health Maintenance Due Date Last Done Comments Colon Cancer Screening-Colonoscopy 1977 Depression Screening 1977 Hepatitis C Screening 1977 Pneumococcal vaccine <65 (1 of 2 - PCV) 1983 Hepatitis B Screening 1995 Regular Well Visit/Exam 18-64 1995 Influenza Vaccine (#1) 2024 DTaP/Tdap/Td Vaccine (2 - Td or Tdap) 07/03/2032 Procedures Procedure Name Priority Date/Time Associated Diagnosis Comments MRA CAROTIDS W CONTRAST Schedule Routine, Read Routine (OP Routine) 11/04/2024 3:27 PM CAMPUS RECRUITER Cervical strain, initial encounter Spondylosis Abnormal vascular flow from Last 3 Months Results * MRA Carotids W Contrast (11/04/2024 3:27 PM CAMPUS RECRUITER) Anatomical Region Laterality Modality Head and Neck N/A Magnetic Resonan ce 11/05/2024 9:25 AM CAMPUS RECRUITER Narrative 11/05/2024 9:33 AM CAMPUS RECRUITER EXAM DESCRIPTION: MRA CAROTIDS WITH AND WITHOUT [...] carotid and vertebral arteries was performed using [id number] techniques without and with the use of [...] Horacio Leyva M.D. MM: MM Report ID: [id number] Reading Location: [id number] Procedure Note Horacio Leyva MD - 11/05/2024 [...] carotid and vertebral arteries was performed using [id number] techniques without and with the use of [...] Horacio Leyva M.D. MM: MM Report ID: [id number] Reading Location: [id number] Rustam Anton DO IMG MRI PROCEDURES Final Result from Last 3 Months Insurance [facility] [employer] Care Teams Compressor Operator Portable Relationship Specialty Start Date End Date Ann Garcia MD PCP - General Family Medicine 08/06/17
--- NOTE | 2025-01-02 09:53 | ECG_ITS ---
Test Date: 2025-01-02 10:06:04 Measurements Intervals [place] Rate: 93 P: 63 PA: 151 QRS: 68 QRSD: 102 T: -16 QT: 313 QTc: 390 Interpretive Statements SINUS RHYTHM MINIMAL Q WAVES- INF/LAT LEADS BORDERLINE ST-T WAVE ABNORMALITY- INFERIOR LEADS BASELINE ARTIFACT- V3 BORDERLINE ECG No previous ECG available for comparison Electronically Signed On 01-02-2025 10:11:11 MICROBIOLOGY TEACHER by Javier Abarca D.O.
[2025-01-02 10:21] LABS: Basophils Absolute Auto 0.1 K/mm3 (0.0-0.1); Basophils Percent Auto 0.6 % (0.2-1.2); Eosinophils Absolute Auto 0.3 K/mm3 (0-0.3); Eosinophils Percent Auto 2.4 % (0-4.4); Hematocrit 48.9 % (42.0-52.0); Hemoglobin 16.6 g/dL (14.0-18.0); Immature Granulocyte Absolute 0.07 K/mm3 (0.00-0.031); Immature Granulocyte Percent A 0.6 % (0-0.5); Lymphocytes Absolute Auto 4.49 K/mm3 (0.9-3.2); Mean Corpuscular HGB Conc 33.9 g/dl (32-36); Mean Corpuscular Hemoglobin 30.7 pg (26-34); Mean Corpuscular Volume 90.4 fl (80-100); Mean Platelet Volume 10.4 fl (7.4-10.4); Monocytes Absolute Auto 0.8 K/mm3 (0.1-0.6); Monocytes Percent Auto 6.3 % (2.6-8.5); Neutrophils Absolute Auto 6.8 K/mm3 (1.3-6.7); Neutrophils Percent Auto 54.1 % (45.5-73.1); Platelet Count Result 373 k/mm3 (150-375); Red Blood Count 5.41 M/mm3 (4.6-6.20); Red Cell Distribution Width 11.8 % (11.5-14.5); White Blood Count 12.5 K/mm3 (4.5-10.0)
[2025-01-02 10:41] LABS: Alanine Aminotransferase 35 U/L (6-50); Albumin Level 4.3 g/dL (3.5-5.1); Alkaline Phosphatase 106 U/L (38-126); Anion Gap 10 mmol/L (4-12); Aspartate Amino Transferase 24 U/L (17-59); Bilirubin,Total 0.8 mg/dL (0.2-1.3); Blood Urea Nitrogen 7 mg/dL (9-20); Calcium 10.2 mg/dL (8.4-10.2); Carbon Dioxide 26 mmol/L (22-30); Chloride 101 mmol/L (98-107); Cholesterol 248 mg/dL (0-200); Estimated Glomerular Filt Rate > 60; Glucose 133 mg/dL (65-110); HDL Direct 33 mg/dL; Potassium 4.1 mmol/L (3.4-5.0); Sodium 137 mmol/L (137-145); Triglycerides 332 mg/dL (<150)
[2025-01-02 10:44] LABS: MALB Creatinine Ratio < 15.0 mg/g (0-30); Microalbumin Urine Random < 6.0 mg/L (0-16.7)
[2025-01-02 10:52] LABS: Hemoglobin A1C 6.5 % (<5.7)
[2025-01-02 10:53] LABS: Vitamin D 25 Hydroxy 13.9 ng/mL
[2025-01-02 10:55] LABS: LDL Cholesterol Direct 153 mg/dL
[2025-01-02 11:13] LABS: Prostate Specific Antigen 1.9 ng/mL (< OR = 4.0)
== END 2025-01-02 09:33 | disposition home or self-care (01) ==
LOC: ANHLAB 09:33
PROVIDERS: PCP Family Medicine; Visit Provider Family Medicine
DX: E78.2 Mixed hyperlipidemia (principal); E11.9 Type 2 diabetes mellitus without complications; E55.9 Vitamin D deficiency, unspecified; R53.83 Other fatigue; Z12.5 Encounter for screening for malignant neoplasm of prostate; R55 Syncope and collapse
CPT/HCPCS: 36415; 80053; 80061; 82043; 82306; 83036; 84153; 84443; 85025; 93005; G0103